=== PATIENT | male | born 1965 | race Caucasian/White ===

== ENCOUNTER 2018-08-02 13:39 | Emergency (ER) | payer OTHER ==
[2018-08-02] MEDS ORDERED: methylPREDNISolone SOD SUCCI 125 MG/2 ML VIAL IV STA (14:39)
[2018-08-02] MEDS ORDERED: IPRATROPIUM-ALBUTEROL 3 ML NEB INHALATION STA (14:39)
--- NOTE | 2018-08-02 14:58 | ED ---
General Adult HPI - General Chief complaint: Upper Respiratory Infection Stated complaint: Upper respiratory problems Time Seen by Provider: 08/02/18 14:31 Source: patient, RN notes reviewed Mode of arrival: ambulatory Limitations: no limitations - History of Present Illness Initial comments: 52-year-old male with a past medical history of COPD, heart failure, hyperlipidemia, hypertension presents to the emergency department for a chief complaint of cough 2 days. Patient states this cough is productive with white sputum. Patient states it is making him feel short of breath. He states he is having some pain in his chest when coughing. Patient states the shortness of breath is consistent with previous COPD exacerbations. Patient states he always has mild leg edema due to CHF and it is currently at its baseline. He states he has been taking his medications including Lasix. Patient has no other complaints at this time including abdominal pain, nausea or vomiting, headache, or visual changes. - Related Data Previous Rx's Medication Instructions Recorded Albuterol Inhaler [Ventolin Hfa 1 - 2 puff INHALATION Q6HR PRN #1 08/02/18 Inhaler] inhaler Azithromycin [Zithromax Z-pack] 250 mg PO DIRECTED #6 tab 08/02/18 predniSONE 50 mg PO DAILY #5 tablet 08/02/18 Allergies Allergy/AdvReac Type Severity Reaction Status Date / Time No Known Allergies Allergy Verified 08/02/18 14:09 Review of Systems ROS Statement: Those systems with pertinent positive or pertinent negative responses have been documented in the HPI. ROS Other: All systems not noted in ROS Statement are negative. Past Medical History Past Medical History: Heart Failure, COPD, Hyperlipidemia, Hypertension History of Any Multi-Drug Resistant Organisms: None Reported Past Surgical History: No Surgical Hx Reported Past Psychological History: ADD/ADHD, Anxiety, Bipolar, Depression, PTSD Smoking Status: Current every day smoker Past Alcohol Use History: None Reported Past Drug Use History: None Reported General Exam Limitations: no limitations General appearance: alert, in no apparent distress Head exam: Present: atraumatic, normocephalic, normal inspection Eye exam: Present: normal appearance, PERRL, EOMI. Absent: scleral icterus, conjunctival injection, periorbital swelling ENT exam: Present: normal exam, mucous membranes moist Neck exam: Present: normal inspection, full ROM. Absent: tenderness, meningismus, lymphadenopathy Respiratory exam: Present: wheezes (wheezing noted throughout lung cavanaugh), chest wall tenderness. Absent: respiratory distress, rales, rhonchi, stridor Cardiovascular Exam: Present: regular rate, normal rhythm, normal heart sounds. Absent: systolic murmur, diastolic murmur, rubs, gallop, clicks GI/Abdominal exam: Present: soft, normal bowel sounds. Absent: distended, tenderness, guarding, rebound, rigid Neurological exam: Present: alert, oriented X3, CN II-XII intact Psychiatric exam: Present: normal affect, normal mood Course Vital Signs 08/02/18 08/02/18 08/02/18 14:04 15:37 15:42 Temperature 97.8 F Pulse Rate 95 86 77 Respiratory 20 20 Rate Blood Pressure 133/78 122/85 O2 Sat by Pulse 94 L 96 Oximetry 08/02/18 08/02/18 08/02/18 15:50 17:00 17:35 Temperature 98.3 F Pulse Rate 85 86 Respiratory 16 Rate Blood Pressure 116/83 O2 Sat by Pulse 95 Oximetry EKG Findings - EKG Comments: EKG Findings:: Normal sinus rhythm, ventricular rate 87, TN interval 158, QTC 471, no evidence of ST elevation or depression Medical Decision Making - Medical Decision Making 52-year-old male with a past medical history of COPD, heart failure, hyperlipidemia, hypertension presents to the emergency department for a chief of cough 2 days. Patient states the cough is productive with white sputum. Except as short of breath. States it is somewhat painful when he coughs, denies pain otherwise. States this feels similar to his COPD exacerbation. Patient is wheezing in all lung cavanaugh on exam. Initially 94% on room air. CBC does show a white count of 12.9. Patient's lactic acid 2.4, patient given fluids. X-ray however is negative for pneumonia. Patient reevaluated at this time, feeling much better. Lungs are significantly clear. Pierre of breath has improved significantly. Discussed possibility of admission at this time which patient declined states he would rather try outpatient treatment, I do think this is reasonable. Dr. Sanchez also saw the patient who agrees. Patient will be given steroid pack as well as a Z-Sy and an inhaler. He will follow up with primary care in 1-2 days. He is aware that he is to return if he has worsening symptoms. Also discussed hyperglycemia with patient. He just ate a doughnut and an orange. This could be the cause. Patient states he is a borderline diabetic, he will follow up for high blood sugar. - Lab Data Result diagrams: 08/02/18 14:50 08/02/18 14:50 Lab Results 08/02/18 08/02/18 08/02/18 Range/Units 14:50 14:50 14:50 WBC 12.9 H (3.8-10.6) k/uL RBC 5.30 (4.30-5.90) m/uL Hgb 16.3 (13.0-17.5) gm/dL Hct 47.9 (39.0-53.0) % MCV 90.4 (80.0-100.0) fL MCH 30.8 (25.0-35.0) pg MCHC 34.1 (31.0-37.0) g/dL RDW 12.8 (11.5-15.5) % Plt Count 236 (150-450) k/uL Neutrophils % 77 % Lymphocytes % 15 % Monocytes % 4 % Eosinophils % 2 % Basophils % 1 % Neutrophils # 9.9 H (1.3-7.7) k/uL Lymphocytes # 1.9 (1.0-4.8) k/uL Monocytes # 0.5 (0-1.0) k/uL Eosinophils # 0.3 (0-0.7) k/uL Basophils # 0.1 (0-0.2) k/uL PT 9.6 (9.0-12.0) sec INR 0.9 (<1.2) APTT 24.8 (22.0-30.0) sec Sodium 137 (137-145) mmol/L Potassium 3.5 (3.5-5.1) mmol/L Chloride 96 L (98-107) mmol/L Carbon Dioxide 32 H (22-30) mmol/L Anion Gap 9 mmol/L BUN 19 (9-20) mg/dL Creatinine 0.54 L (0.66-1.25) mg/dL Est GFR (CKD-EPI)AfAm >90 (>60 ml/min/1.73 sqM) Est GFR (CKD-EPI)NonAf >90 (>60 ml/min/1.73 sqM) Glucose 274 H (74-99) mg/dL Lactic Ac Sepsis Rflx Plasma Lactic Acid Duke (0.7-2.0) mmol/L Calcium 9.1 (8.4-10.2) mg/dL Magnesium 1.7 (1.6-2.3) mg/dL Total Bilirubin 0.6 (0.2-1.3) mg/dL AST 24 (17-59) U/L ALT 54 (21-72) U/L Alkaline Phosphatase 111 (38-126) U/L Troponin I (0.000-0.034) ng/mL NT-Pro-B Natriuret Pep pg/mL Total Protein 6.2 L (6.3-8.2) g/dL Albumin 3.8 (3.5-5.0) g/dL 08/02/18 08/02/18 08/02/18 Range/Units 14:50 14:50 14:50 WBC (3.8-10.6) k/uL RBC (4.30-5.90) m/uL Hgb (13.0-17.5) gm/dL Hct (39.0-53.0) % MCV (80.0-100.0) fL MCH (25.0-35.0) pg MCHC (31.0-37.0) g/dL RDW (11.5-15.5) % Plt Count (150-450) k/uL Neutrophils % % Lymphocytes % % Monocytes % % Eosinophils % % Basophils % % Neutrophils # (1.3-7.7) k/uL Lymphocytes # (1.0-4.8) k/uL Monocytes # (0-1.0) k/uL Eosinophils # (0-0.7) k/uL Basophils # (0-0.2) k/uL PT (9.0-12.0) sec INR (<1.2) APTT (22.0-30.0) sec Sodium (137-145) mmol/L Potassium (3.5-5.1) mmol/L Chloride (98-107) mmol/L Carbon Dioxide (22-30) mmol/L Anion Gap mmol/L BUN (9-20) mg/dL Creatinine (0.66-1.25) mg/dL Est GFR (CKD-EPI)AfAm (>60 ml/min/1.73 sqM) Est GFR (CKD-EPI)NonAf (>60 ml/min/1.73 sqM) Glucose (74-99) mg/dL Lactic Ac Sepsis Rflx Plasma Lactic Acid Duke 2.4 H* (0.7-2.0) mmol/L Calcium (8.4-10.2) mg/dL Magnesium (1.6-2.3) mg/dL Total Bilirubin (0.2-1.3) mg/dL AST (17-59) U/L ALT (21-72) U/L Alkaline Phosphatase (38-126) U/L Troponin I <0.012 (0.000-0.034) ng/mL NT-Pro-B Natriuret Pep 51 pg/mL Total Protein (6.3-8.2) g/dL Albumin (3.5-5.0) g/dL 08/02/18 Range/Units 15:53 WBC (3.8-10.6) k/uL RBC (4.30-5.90) m/uL Hgb (13.0-17.5) gm/dL Hct (39.0-53.0) % MCV (80.0-100.0) fL MCH (25.0-35.0) pg MCHC (31.0-37.0) g/dL RDW (11.5-15.5) % Plt Count (150-450) k/uL Neutrophils % % Lymphocytes % % Monocytes % % Eosinophils % % Basophils % % Neutrophils # (1.3-7.7) k/uL Lymphocytes # (1.0-4.8) k/uL Monocytes # (0-1.0) k/uL Eosinophils # (0-0.7) k/uL Basophils # (0-0.2) k/uL PT (9.0-12.0) sec INR (<1.2) APTT (22.0-30.0) sec Sodium (137-145) mmol/L Potassium (3.5-5.1) mmol/L Chloride (98-107) mmol/L Carbon Dioxide (22-30) mmol/L Anion Gap mmol/L BUN (9-20) mg/dL Creatinine (0.66-1.25) mg/dL Est GFR (CKD-EPI)AfAm (>60 ml/min/1.73 sqM) Est GFR (CKD-EPI)NonAf (>60 ml/min/1.73 sqM) Glucose (74-99) mg/dL Lactic Ac Sepsis Rflx Y Plasma Lactic Acid Duke (0.7-2.0) mmol/L Calcium (8.4-10.2) mg/dL Magnesium (1.6-2.3) mg/dL Total Bilirubin (0.2-1.3) mg/dL AST (17-59) U/L ALT (21-72) U/L Alkaline Phosphatase (38-126) U/L Troponin I (0.000-0.034) ng/mL NT-Pro-B Natriuret Pep pg/mL Total Protein (6.3-8.2) g/dL Albumin (3.5-5.0) g/dL Disposition Clinical Impression: COPD exacerbation Disposition: HOME SELF-CARE Condition: Good Instructions (If sedation given, give patient instructions): COPD (Chronic Obstructive Pulmonary Disease) (ED), Upper Respiratory Infection (ED) Additional Instructions: Please take medications as directed. Use inhaler as needed. Follow-up with primary care in 1-2 days. Return here if you having worsening symptoms or worsening shortness of breath. Prescriptions: Albuterol Inhaler [Ventolin Hfa Inhaler] 1 - 2 puff INHALATION Q6HR PRN #1 inhaler PRN Reason: wheezing Azithromycin [Zithromax Z-pack] 250 mg PO DIRECTED #6 tab predniSONE 50 mg PO DAILY #5 tablet Is patient prescribed a controlled substance at d/c from ED?: No Referrals: Mariela Haro MD [Primary Care Provider] - 1-2 days Time of Disposition: 16:30
[2018-08-02 15:10] LABS: Basophils # (A) 0.1 k/uL (0-0.2); Basophils % (A) 1 %; Eosinophils # (A) 0.3 k/uL (0-0.7); Eosinophils % (A) 2 %; HCT 47.9 % (39.0-53.0); HGB 16.3 gm/dL (13.0-17.5); Lymphocytes # (A) 1.9 k/uL (1.0-4.8); Lymphocytes % (A) 15 %; MCH 30.8 pg (25.0-35.0); MCHC 34.1 g/dL (31.0-37.0); MCV 90.4 fL (80.0-100.0); Monocytes # (A) 0.5 k/uL (0-1.0); Monocytes % (A) 4 %; Neutrophils # (A) 9.9 k/uL (1.3-7.7); Neutrophils % (A) 77 %; Platelet Count 236 k/uL (150-450); RDW 12.8 % (11.5-15.5); WBC 12.9 k/uL (3.8-10.6)
[2018-08-02 15:19] LABS: INR 0.9 (<1.2); Partial Thromboplastin Time 24.8 sec (22.0-30.0); Prothrombin Time 9.6 sec (9.0-12.0)
[2018-08-02 15:34] LABS: ALT 54 U/L (21-72); AST 24 U/L (17-59); Albumin 3.8 g/dL (3.5-5.0); Alkaline Phosphatase 111 U/L (38-126); Anion Gap 9 mmol/L; Blood Urea Nitrogen 19 mg/dL (9-20); Calcium 9.1 mg/dL (8.4-10.2); Carbon Dioxide 32 mmol/L (22-30); Chloride 96 mmol/L (98-107); Glucose 274 mg/dL (74-99); Magnesium 1.7 mg/dL (1.6-2.3); Potassium 3.5 mmol/L (3.5-5.1); Sodium 137 mmol/L (137-145); Total Bilirubin 0.6 mg/dL (0.2-1.3); Total Protein 6.2 g/dL (6.3-8.2)
--- NOTE | 2018-08-02 15:59 | XR ---
EXAMINATION TYPE: XR chest 2V DATE OF EXAM: 08/02/2018 COMPARISON: NONE HISTORY: Shortness of breath and cough TECHNIQUE: Frontal and lateral views of the chest are obtained. FINDINGS: There is chronic parenchymal change without suspicious focal air space opacity, pleural ef fusion, or pneumothorax seen. The cardiac silhouette size is within normal limits with slightly ecta tic thoracic aorta. The osseous structures are intact. IMPRESSION: Chronic parenchymal changes without acute pulmonary process.
[2018-08-02] MEDS ORDERED: SODIUM CHLORIDE 0.9% 500 ML 500 ML IV STA (16:08)
[2018-08-02 17:00] VITALS: BP 116/83; PULSE 86; RESP 16
[2018-08-02 17:38] VITALS: TEMP 98.3
== END 2018-08-02 17:35 | disposition home or self-care (01) ==
LOC: EC 13:39
DX: J44.1 Chronic obstructive pulmonary disease with (acute) exacerbation (principal); R73.09 Other abnormal glucose; I11.0 Hypertensive heart disease with heart failure; I50.9 Heart failure, unspecified; F17.200 Nicotine dependence, unspecified, uncomplicated; Z79.899 Other long term (current) drug therapy
CPT/HCPCS: 36415; 94640; 93005; 83880; 80053; 83605; 83735; 84484; 85025; 85610; 85730; 87040; 71046; 99285; 96374; 96361; J2930

== ENCOUNTER → 2018-08-10 | Outpatient (CLI) | payer OTHER ==
--- NOTE | 2018-08-10 14:15 | US ---
EXAMINATION TYPE: US venous doppler duplex LE DATE OF EXAM: 08/10/2018 1:48 PM COMPARISON: NONE CLINICAL HISTORY: R60.0 localized edema. Bilateral leg edema SIDE PERFORMED: Bilateral TECHNIQUE: The lower extremity deep venous system is examined utilizing real time linear array sonog billy with graded compression, doppler sonography and color-flow sonography. VESSELS IMAGED: External Iliac Vein (EIV) Common Femoral Vein Deep Femoral Vein Greater Saphenous Vein * Femoral Vein Popliteal Vein Small Saphenous Vein * Proximal Calf Veins (* superficial vessels) Grayscale, color doppler, spectral doppler imaging performed of the deep veins of the lower extremiti es. There is normal flow, compressibility, vascular waveforms. Right Leg: Negative for DVT Left Leg: Negative for DVT IMPRESSION: No sonographic evidence of deep venous thrombosis within either lower extremity.
== END ==
LOC: RADUSWWP 13:18
PROVIDERS: ATTEND Family Medicine
DX: R60.0 Localized edema (principal)
CPT/HCPCS: 93970

== ENCOUNTER 2018-09-08 11:19 | Inpatient (IN) | payer OTHER ==
[2018-09-08] MEDS ORDERED: ASPIRIN 325 MG TAB PO ONE (12:10)
[2018-09-08] MEDS ORDERED: CLOPIDOGREL 75 MG TAB PO ONE (12:10)
[2018-09-08] MEDS ORDERED: BIVALIRUDIN 250 MG in SODIUM CHLORIDE 0.9% 50 ML IV ONE (12:20)
[2018-09-08] MEDS ORDERED: BIVALIRUDIN BOLUS 250 MG/50 ML IV ONE (12:20)
[2018-09-08] MEDS ORDERED: IV FLUID CONTINUATION 900 ML IV ONE (12:20)
[2018-09-08] MEDS ORDERED: IOPAMIDOL-370 150ML BTL INJ ONE (12:44)
[2018-09-08] MEDS ORDERED: ZOLPIDEM 5 MG TAB PO PRN (12:49)
[2018-09-08] MEDS ORDERED: NITROGLYCERIN SL TABS 0.4 MG TAB SUBLINGUAL PRN (12:49)
[2018-09-08] MEDS ORDERED: MAG HYDROX/AL HYDROX/SIMETH 30 ML CUP PO PRN (12:49)
[2018-09-08] MEDS ORDERED: RX INFO: IV CONTRAST WAS GIVEN 1 EACH MISC MISCELLANE PRN (12:49)
[2018-09-08] MEDS ORDERED: ATROPINE SULFATE 0.1 MG/ML 10ML SYRINGE IV PRN (12:49)
[2018-09-08] MEDS ORDERED: SODIUM CHLORIDE 0.9% 1,000 ML IV SCH (13:00)
--- NOTE | 2018-09-08 19:28 | PTCA ---
PERCUTANEOUSTRANS CORORONARY ANGIOGRAPHY Mr. Cohn is a 52-year-old male known history of chronic tobacco use, hypertension, diabetes and hyperlipidemia, who presented with symptoms of dizziness, syncope, and dyspnea as well as chest discomfort to [facility], underwent a myocardial perfusion imaging that revealed evidence of inducible ischemia. He underwent cardiac catheterization that revealed significant obstructive disease involving the proximal left circumflex. In view of that, recommendation made regarding coronary angioplasty and stenting. The procedure as well as risks and complication were discussed with the patient who is in full understanding and agreement. PROCEDURE: Patient was brought to the landscape laborer in a fasting semi-sedated state. He has received fentanyl and Benadryl. Using guidewire exchange technique, a 6-Bangladeshi sheath in the right radial artery was exchanged to a 6-Bangladeshi sheath. Following that, a 6-Bangladeshi FL5 guiding catheter in the system. After cannulating the left circumflex ostium a 0.014 balanced medium weight J-wire was advanced across the lesion, positioned distally. Then a 4.0 x 18 mm Xience Alma Rosa stent was advanced, deployed and post at 16 atmospheres. After the last inflation, after appropriate wait, the balloon was withdrawn back and a 4.5 x 12 mm NC Trek balloon was advanced and one inflation at 12 atmospheres was done. Following that, the balloon was withdrawn back in the wire. Images were obtained and repeated. Those images reveal stable successful stenting. Following that, the guiding catheter was removed and a 6-Bangladeshi FR4 guiding catheter was introduced in the system. An image of the right coronary was performed. Following that, catheter and sheath were removed. Hemostasis was obtained with deployment of a TR band. There was no immediate complication. Patient is returned to his room in stable condition. Of note, the patient had chest discomfort with the inflation that resolved at the end of the procedure. He received Angiomax per protocol as well as oral loading dose of clopidogrel. RESULTS: 1. Successful stenting of the proximal left circumflex with reduction of stenosis from 70% to 0%. 2. Mild to moderate disease in the proximal right coronary artery. RECOMMENDATION: Patient will be continued on aspirin, Plavix, beta archie, KEN inhibitor, and statin. The importance of dual antiplatelet treatment were discussed with the patient and his family who are in full understanding and agreement. Duration of procedure 26 minutes. MMODL / IJN: [id number] /
[2018-09-08 19:50] VITALS: RESP 18
[2018-09-08] MEDS: OXcarbazepine 300 MG TAB PO SCH (20:14)
[2018-09-08] MEDS: METOPROLOL TARTRATE 25 MG TAB PO SCH (20:14)
[2018-09-08] MEDS ORDERED: traZODone HCL 100 MG TAB PO SCH (21:00)
[2018-09-08] MEDS ORDERED: ATORVASTATIN 80 MG TAB PO SCH (21:00)
[2018-09-09 07:30] VITALS: TEMP 98.6
[2018-09-09 07:51] LABS: Anion Gap 6 mmol/L; Blood Urea Nitrogen 10 mg/dL (9-20); Calcium 9.2 mg/dL (8.4-10.2); Carbon Dioxide 29 mmol/L (22-30); Chloride 104 mmol/L (98-107); Glucose 159 mg/dL (74-99); Potassium 4.5 mmol/L (3.5-5.1); Sodium 139 mmol/L (137-145)
[2018-09-09] MEDS: METOPROLOL TARTRATE 25 MG TAB PO SCH (08:18)
[2018-09-09] MEDS: OXcarbazepine 300 MG TAB PO SCH (08:18)
[2018-09-09] MEDS ORDERED: PANTOPRAZOLE 40 MG TABLET PO SCH (08:30)
--- NOTE | 2018-09-09 08:53 | PN ---
PROGRESS NOTE Mr. Cohn is a 52-year-old male who presented to [facility] with an episode of syncope, dyspnea and chest discomfort, had an abnormal myocardial perfusion imaging. Subsequently underwent cardiac catheterization revealed significant stenosis in the proximal left circumflex, underwent stenting of that vessel yesterday. He is doing well this morning. He denies any chest pain. No dizziness. No palpitation. He continues to be at this time on aspirin once a day, Lipitor 80 mg daily, Plavix 75 mg daily, lisinopril 5 mg daily, metoprolol tartrate 25 mg twice a day, trazodone 100 mg daily. PHYSICAL EXAMINATION: Blood pressure 130/80 with the heart rate in the 70s. LUNGS: Clear. HEART: Regular rate and rhythm. S1, S2. No S3. No rub. ABDOMEN: Soft, nontender. EXTREMITIES: No edema. Right radial pulse intact. LAB DATA: Lab data revealed a BUN and creatinine of 10 and 0.67, potassium 4.5. IMPRESSION: 1. Status post stenting of the left circumflex. 2. Chronic tobacco use. 3. Hyperlipidemia. 4. Chronic obstructive pulmonary disease. RECOMMENDATION: Patient will be discharged home today and followed as an outpatient. The importance of smoking cessation was discussed with him in detail. MMODL / IJN: [id number] /
[2018-09-09] MEDS ORDERED: AMITRIPTYLINE HCL 25 MG TAB PO SCH (09:00)
[2018-09-09] MEDS ORDERED: LISINOPRIL 5 MG TAB PO SCH (09:00)
[2018-09-09] MEDS ORDERED: ASPIRIN 81 MG PO SCH (09:00)
[2018-09-09 11:20] VITALS: BP 142/78; PULSE 71
[2018-09-09] MEDS ORDERED: CLOPIDOGREL 75 MG TAB PO SCH (12:00)
--- NOTE | 2018-09-09 12:47 | P.HPIM ---
History of Present Illness 52-year-old pleasant gentleman was transferred to [facility] for Cardiac Catheterization and Stenting of Proximal Left Circumflex. Patient Was Admitted Acutely [facility] When He Presented There with Shortness of Breath and Lightheadedness. His Are Shortness of Breath Is Probably Multifactorial Including Restrictive Lung Disease Sleep Apnea Secondary to His Obesity and the from a Mild to COPD Patient Used To Smoke 2-3 Packs Was of Cigarettes per Day Presently Smoking 1 Pack per Day. Patient Has a Part of Workup for Shortness of Breath Underwent the Echocardiogram Which Led to a Stress Test Which Led to Cardiac Catheterization Found to Have Occlusion of Proximal Left Circumflex. Patient Presently Underwent Stenting of This Was so and Clinically Doing Well Is Still Bit Short of Breath Which Is Most Probably Due To Other Factors As Mentioned above. Patient Denied Any Fever Chills Nausea Vomiting Patient Is Melonie lin Discharged Today in Stable Medical Condition to Home. Extensive Counseling regarding Smoking Cessation Weight-Loss Lifestyle Modifications Was Provided. And Counseling regarding Post Stent Placement Care Was Also Provided. Review of Systems REVIEW OF SYSTEMS: CONSTITUTIONAL: No fever, no malaise, no fatigue. HEENT: No recent visual problems or hearing problems. Denied any sore throat. CARDIOVASCULAR: No chest pain, orthopnea, PND, no palpitations, no syncope. PULMONARY: No shortness of breath, no cough, no hemoptysis. GASTROINTESTINAL: No diarrhea, no nausea, no vomiting, no abdominal pain. NEUROLOGICAL: No headaches, no weakness, no numbness. HEMATOLOGICAL: Denies any bleeding or petechiae. GENITOURINARY: Denies any burning micturition, frequency, or urgency. MUSCULOSKELETAL/RHEUMATOLOGICAL: Denies any joint pain, swelling, or any muscle pain. ENDOCRINE: Denies any polyuria or polydipsia. The rest of the 14-point review of systems is negative. Past Medical History Past Medical History: Heart Failure, COPD, Hyperlipidemia, Hypertension History of Any Multi-Drug Resistant Organisms: None Reported Past Surgical History: No Surgical Hx Reported Additional Past Surgical History / Comment(s): right second digit 20years ago Past Anesthesia/Blood Transfusion Reactions: No Reported Reaction Past Psychological History: ADD/ADHD, Anxiety, Bipolar, Depression, PTSD Smoking Status: Current every day smoker Past Alcohol Use History: None Reported Past Drug Use History: None Reported - Past Family History Father Family Medical History: COPD, Myocardial Infarction ([place]) Additional Family Medical History / Comment(s): ETOH,passed from [place] Mother Family Medical History: COPD, Myocardial Infarction ([place]) Sister(s) Family Medical History: COPD, Myocardial Infarction ([place]) Additional Family Medical History / Comment(s): cardiac stents Medications and Allergies Home Medications Medication Instructions Recorded Confirmed Type Albuterol Nebulized [Ventolin 2.5 mg INHALATION RT-TID PRN 09/08/18 09/08/18 History Nebulized] Amitriptyline HCl [Elavil] 25 mg PO HS 09/08/18 09/08/18 History Atorvastatin [Lipitor] 40 mg PO DAILY 09/08/18 09/08/18 History Ergocalciferol (Vitamin D2) 50,000 unit PO MOTH 09/08/18 09/08/18 History [Vitamin D2] Furosemide [Lasix] 40 mg PO DAILY 09/08/18 09/08/18 History Lisinopril [Zestril] 10 mg PO DAILY 09/08/18 09/08/18 History OXcarbazepine [Trileptal] 300 mg PO BID 09/08/18 09/08/18 History Ranitidine HCl 150 mg PO BID 09/08/18 09/08/18 History Sertraline [Zoloft] 100 mg PO DAILY 09/08/18 09/08/18 History hydrOXYzine PAMOATE [Vistaril] 25 mg PO Q8H 09/08/18 09/08/18 History traZODone HCL [Desyrel] 100 mg PO HS 09/08/18 09/08/18 History Aspirin 81 mg PO DAILY chew 09/09/18 Rx Clopidogrel [Plavix] 75 mg PO DAILY #90 tab 09/09/18 Rx Metoprolol Tartrate [Lopressor] 25 mg PO BID #0 09/09/18 09/08/18 Rx Nitroglycerin Sl Tabs [Nitrostat] 0.4 mg SUBLINGUAL Q5M PRN #25 tab 09/09/18 Rx Allergies Allergy/AdvReac Type Severity Reaction Status Date / Time No Known Allergies Allergy Verified 08/02/18 14:09 Physical Exam Vitals: Vital Signs Temp Pulse Resp BP Pulse Ox 09/09/18 11:19 71 18 142/78 96 09/09/18 07:25 98.6 F 78 18 149/66 96 09/09/18 03:29 98.1 F 71 18 130/81 95 09/08/18 23:45 98.5 F 76 18 152/93 96 09/08/18 20:34 18 09/08/18 19:15 98.3 F 67 18 115/65 94 L 09/08/18 17:19 98 F 66 16 122/76 94 L 09/08/18 16:45 66 16 94 L 09/08/18 15:45 22 134/65 09/08/18 15:15 18 122/70 09/08/18 15:00 20 127/76 Intake and Output 09/08/18 09/09/18 09/09/18 22:59 06:59 14:59 Intake Total 220 Balance 220 Intake: Oral 220 Other: # Voids 1 Weight 129.5 kg PHYSICAL EXAMINATION: GENERAL: The patient is alert and oriented x3, not in any acute distress. Well developed, well nourished. HEENT: Pupils are round and equally reacting to light. EOMI. No scleral icterus. No conjunctival pallor. Normocephalic, atraumatic. No pharyngeal erythema. No thyromegaly. CARDIOVASCULAR: S1 and S2 present. No murmurs, rubs, or gallops. PULMONARY: Chest is clear to auscultation, no wheezing or crackles. ABDOMEN: Soft, nontender, nondistended, normoactive bowel sounds. No palpable organomegaly. MUSCULOSKELETAL: No joint swelling or deformity. EXTREMITIES: No cyanosis, clubbing, or pedal edema. NEUROLOGICAL: Gross neurological examination did not reveal any focal deficits. SKIN: No rashes. Results CBC & Chem 7: 09/09/18 06:57 Labs: Abnormal Lab Results - Last 24 Hours (Table) 09/09/18 Range/Units 06:57 Glucose 159 H (74-99) mg/dL Thrombosis Risk Factor Assmnt - Choose All That Apply Any of the Below Risk Factors Present?: Yes Each Factor Represents 1 point: Abnormal pulmonary function (COPD), Age 41-60 years, Obesity (BMI >25) Thrombosis Risk Factor Assessment Total Risk Factor Score: 3 Thrombosis Risk Factor Assessment Level: Moderate Risk Assessment and Plan Plan: -Coronary artery disease status post stenting of left circumflex patient will be continued and antiplatelet therapy beta archie along with lisinopril patient had normal ejection fraction. -Chronic tobacco use with a competent of COPD without any acute exacerbation patient can continue his inhaled steroids inhalational treatments which he already has at home. -Hiatal hernia and gastroesophageal reflux disease and this aids will be discussed in your patient can continue his Zantac -Hyperlipidemia -Obesity with sleep apnea -Shortness of breath which appears to be chronic and multifactorial as mentioned above. Patient will be discharged today
--- NOTE | 2018-09-09 12:48 | P.DS ---
Providers Date of admission: 09/08/18 12:50 Attending physician: Carisa Garcia MD Consults: 09/08/18 12:49 Consult Physician Routine Consulting Provider: [facility] Consult Reason/Comments: Post Interventional patient Do you want consulting provider notified?: Already Contacted Placement Type Exists?: Yes Primary care physician: Stated None Hospital Course: As mentioned in HPI Plan - Discharge Summary Discharge Rx Participant: Yes New Discharge Prescriptions: New Aspirin 81 mg PO DAILY chew Nitroglycerin Sl Tabs [Nitrostat] 0.4 mg SUBLINGUAL Q5M PRN #25 tab PRN Reason: Chest Pain Clopidogrel [Plavix] 75 mg PO DAILY #90 tab Continue Lisinopril [Zestril] 10 mg PO DAILY Atorvastatin [Lipitor] 40 mg PO DAILY Amitriptyline HCl [Elavil] 25 mg PO HS Albuterol Nebulized [Ventolin Nebulized] 2.5 mg INHALATION RT-TID PRN PRN Reason: Shortness Of Breath Sertraline [Zoloft] 100 mg PO DAILY OXcarbazepine [Trileptal] 300 mg PO BID traZODone HCL [Desyrel] 100 mg PO HS Ranitidine HCl 150 mg PO BID Ergocalciferol (Vitamin D2) [Vitamin D2] 50,000 unit PO MOTH hydrOXYzine PAMOATE [Vistaril] 25 mg PO Q8H Changed Metoprolol Tartrate [Lopressor] 25 mg PO BID #0 Discontinued Potassium Chloride [K-Tab ER] 20 meq PO DAILY Furosemide [Lasix] 40 mg PO DAILY Metolazone [Zaroxolyn] 2.5 mg PO DAILY Naproxen [Naprosyn] 375 mg PO Q12H PRN PRN Reason: Pain Discharge Medication List Albuterol Nebulized [Ventolin Nebulized] 2.5 mg INHALATION RT-TID PRN 09/08/18 [History] Amitriptyline HCl [Elavil] 25 mg PO HS 09/08/18 [History] Atorvastatin [Lipitor] 40 mg PO DAILY 09/08/18 [History] Ergocalciferol (Vitamin D2) [Vitamin D2] 50,000 unit PO MOTH 09/08/18 [History] Lisinopril [Zestril] 10 mg PO DAILY 09/08/18 [History] OXcarbazepine [Trileptal] 300 mg PO BID 09/08/18 [History] Ranitidine HCl 150 mg PO BID 09/08/18 [History] Sertraline [Zoloft] 100 mg PO DAILY 09/08/18 [History] hydrOXYzine PAMOATE [Vistaril] 25 mg PO Q8H 09/08/18 [History] traZODone HCL [Desyrel] 100 mg PO HS 09/08/18 [History] Aspirin 81 mg PO DAILY chew 09/09/18 [Rx] Clopidogrel [Plavix] 75 mg PO DAILY #90 tab 09/09/18 [Rx] Metoprolol Tartrate [Lopressor] 25 mg PO BID #0 09/09/18 [Rx] Nitroglycerin Sl Tabs [Nitrostat] 0.4 mg SUBLINGUAL Q5M PRN #25 tab 09/09/18 [Rx] Follow up Appointment(s)/Referral(s): Celeste Tripp MD [STAFF PHYSICIAN] - 1 Week (Office will call with follow up appointment. ) Yessenia Silveira [facility] [REFERRING] - 09/13/18 2:15 pm (Please follow up with primary physician about elevated blood sugar.) Patient Instructions/Handouts: How to Stop Smoking (DC), Heart Healthy Diet (DC), Coronary Intravascular Stent Placement (DC) Discharge Disposition: HOME SELF-CARE
[2018-09-09 14:30] VITALS: BMI 40.9
== END 2018-09-09 15:57 | disposition home or self-care (01) | DRG 247 ==
LOC: 3SCARD 12:50
PROVIDERS: ADMIT Internal Medicine; ATTEND Internal Medicine
PROC: 027034Z Dilation of Coronary Artery, One Artery with Drug-eluting Intraluminal Device, Percutaneous Approach (ICD-10-PCS; principal; 2018-09-08 15:30)
DX: I25.10 Atherosclerotic heart disease of native coronary artery without angina pectoris (principal); Z68.41 Body mass index [BMI] 40.0-44.9, adult; K44.9 Diaphragmatic hernia without obstruction or gangrene; K21.9 Gastro-esophageal reflux disease without esophagitis; E78.5 Hyperlipidemia, unspecified; E66.9 Obesity, unspecified; F17.210 Nicotine dependence, cigarettes, uncomplicated; F31.9 Bipolar disorder, unspecified; F43.10 Post-traumatic stress disorder, unspecified; F90.9 Attention-deficit hyperactivity disorder, unspecified type; G47.30 Sleep apnea, unspecified; I11.0 Hypertensive heart disease with heart failure; I50.9 Heart failure, unspecified; J44.9 Chronic obstructive pulmonary disease, unspecified; Z71.6 Tobacco abuse counseling; Z79.82 Long term (current) use of aspirin; Z79.02 Long term (current) use of antithrombotics/antiplatelets; Z79.899 Other long term (current) drug therapy; Z82.49 Family history of ischemic heart disease and other diseases of the circulatory system; Z82.5 Family history of asthma and other chronic lower respiratory diseases
CPT/HCPCS: 80048; C1874

== ENCOUNTER 2019-01-18 16:37 | Emergency (ER) | payer OTHER ==
[2019-01-18] MEDS ORDERED: DIPH,PERTUS(ACELL)TETVAC-LF 0.5 ML VIAL IM ONE (17:46)
[2019-01-18] MEDS ORDERED: LIDOCAINE 1% INJ 10MG/ML (20 ML MDV) SQ ONE (17:47)
--- NOTE | 2019-01-18 18:23 | XR ---
EXAMINATION TYPE: XR foot complete LT DATE OF EXAM: 01/18/2019 COMPARISON: NONE HISTORY: Pain TECHNIQUE: 3 views FINDINGS: There is soft tissue swelling on the forefoot on the dorsum of the foot. Metatarsals appear intact. I see no fracture nor dislocation. There are no erosions. Joint spaces are fairly normal. IMPRESSION: Soft tissue swelling. No fracture. No sign of osteomyelitis.
[2019-01-18 18:31] LABS: Anisocytosis Slight; Basophils # (A) 0.1 k/uL (0-0.2); Basophils % (A) 0 %; Eosinophils # (A) 0.4 k/uL (0-0.7); Eosinophils % (A) 3 %; HCT 35.6 % (39.0-53.0); HGB 10.3 gm/dL (13.0-17.5); Hypochromasia Marked; Lymphocytes # (A) 1.9 k/uL (1.0-4.8); Lymphocytes % (A) 16 %; MCH 19.3 pg (25.0-35.0); MCHC 28.8 g/dL (31.0-37.0); MCV 66.9 fL (80.0-100.0); Mean Platelet Volume 6.8; Microcytosis Marked; Monocytes # (A) 0.5 k/uL (0-1.0); Monocytes % (A) 4 %; Neutrophils # (A) 8.9 k/uL (1.3-7.7); Neutrophils % (A) 75 %; Platelet Count 315 k/uL (150-450); Poikilocytosis Slight; RBC 5.32 m/uL (4.30-5.90); RDW 19.8 % (11.5-15.5); WBC 11.8 k/uL (3.8-10.6)
[2019-01-18 18:44] LABS: ALT 26 U/L (21-72); AST 22 U/L (17-59); African American GFR (CKD) >90 (>60 ml/min/1.73 sqM); Albumin 4.2 g/dL (3.5-5.0); Alkaline Phosphatase 82 U/L (38-126); Anion Gap 7 mmol/L; Blood Urea Nitrogen 12 mg/dL (9-20); Calcium 9.2 mg/dL (8.4-10.2); Carbon Dioxide 30 mmol/L (22-30); Chloride 103 mmol/L (98-107); Glucose 150 mg/dL (74-99); Potassium 3.8 mmol/L (3.5-5.1); Sodium 140 mmol/L (137-145); Total Bilirubin 0.8 mg/dL (0.2-1.3); Total Protein 6.6 g/dL (6.3-8.2)
[2019-01-18 20:58] VITALS: BP 130/76; PULSE 66; RESP 18; TEMP 98
[2019-01-18] MEDS ORDERED: CEPHALEXIN 500 MG CAP PO STA (20:58)
--- NOTE | 2019-01-18 20:59 | ED ---
Skin/Abscess/FB HPI - General Chief complaint: Skin/Abscess/Foreign Body Stated complaint: LEFT FOOT INFECTION Time Seen by Provider: 01/18/19 17:15 Source: patient Mode of arrival: ambulatory Limitations: no limitations - History of Present Illness Initial comments: The patient is a 53-year-old male who presents to the emergency room with complaint of swelling to his left dorsal foot. He reports a fall the of this month. He did have worsening pain and swelling in his left foot over the following 2 days and therefore went into [facility] on the . They did complete an x-ray of his foot and they thought that he had a fracture. They did place him in an ankle brace and gave him crutches. There was no shoe or walking boot given. States that his abrasion healed however he began having increasing swelling and ecchymosis. He is not on any blood thinners. Reports that he stopped wearing his brace immediately after his appointment. States the pain has been improving. He is able to ambulate without difficulty. He was concerned about the swelling and the fact that he is a diabetic and therefore came to the emergency room for evaluation. He denies any purulent drainage. No calf pain or swelling. No history of DVTs or PEs. Denies any numbness or tingling in his foot. There are no other alleviating, precipitating or modifying factors - Related Data Home Medications Medication Instructions Recorded Confirmed Amitriptyline HCl [Elavil] 25 mg PO HS 09/08/18 01/18/19 Atorvastatin [Lipitor] 40 mg PO DAILY 09/08/18 01/18/19 Ergocalciferol (Vitamin D2) 50,000 unit PO MOTH 09/08/18 01/18/19 [Vitamin D2] Lisinopril [Zestril] 10 mg PO DAILY 09/08/18 01/18/19 OXcarbazepine [Trileptal] 300 mg PO BID 09/08/18 01/18/19 Ranitidine HCl 150 mg PO BID 09/08/18 01/18/19 Sertraline [Zoloft] 100 mg PO DAILY 09/08/18 01/18/19 hydrOXYzine PAMOATE [Vistaril] 25 mg PO Q8H PRN 09/08/18 01/18/19 Furosemide [Lasix] 40 mg PO DAILY 01/18/19 01/18/19 Insulin Glargine,Hum.rec.anlog 10 unit SQ DAILY 01/18/19 01/18/19 [Basaglalvino Gross U-100] Loratadine [Claritin] 10 mg PO DAILY 01/18/19 01/18/19 Metoprolol Tartrate [Lopressor] 50 mg PO BID 01/18/19 01/18/19 Naproxen 375 mg PO Q12H 01/18/19 01/18/19 Potassium Chloride [Klor-Con 20] 20 meq PO DAILY 01/18/19 01/18/19 metFORMIN HCL [Glucophage] 500 mg PO BID 01/18/19 01/18/19 traZODone HCL 150 mg PO HS 01/18/19 01/18/19 Previous Rx's Medication Instructions Recorded Clopidogrel [Plavix] 75 mg PO DAILY #90 tab 09/09/18 Cephalexin [Keflex] 500 mg PO Q6HR 7 Days #28 cap 01/18/19 Allergies Allergy/AdvReac Type Severity Reaction Status Date / Time No Known Allergies Allergy Verified 01/18/19 17:17 Review of Systems ROS Statement: Those systems with pertinent positive or pertinent negative responses have been documented in the HPI. ROS Other: All systems not noted in ROS Statement are negative. Past Medical History Past Medical History: Coronary Artery Disease (CAD), Heart Failure, COPD, Diabetes Mellitus, Hyperlipidemia, Hypertension History of Any Multi-Drug Resistant Organisms: None Reported Past Surgical History: Heart Catheterization With Stent Additional Past Surgical History / Comment(s): right second digit 20years ago Past Anesthesia/Blood Transfusion Reactions: No Reported Reaction Past Psychological History: ADD/ADHD, Anxiety, Bipolar, Depression, PTSD Smoking Status: Current every day smoker Past Alcohol Use History: None Reported Past Drug Use History: None Reported - Past Family History Father Family Medical History: COPD, Myocardial Infarction ([place]) Additional Family Medical History / Comment(s): ETOH,passed from [place] Mother Family Medical History: COPD, Myocardial Infarction ([place]) Sister(s) Family Medical History: COPD, Myocardial Infarction ([place]) Additional Family Medical History / Comment(s): cardiac stents General Exam Limitations: no limitations General appearance: alert, in no apparent distress Extremities exam: Present: full ROM, tenderness (The patient has tenderness to his mid foot on the left, on the dorsal aspect. There is a 4 x 4 cm area of soft tissue swelling with a central ulcer which measures 1 x 1 cm. There is no purulent drainage from the site. No signs of cellulitis. Compartments are soft. The patient has 5 out of 5 muscle strength in his bilateral lower extremities to include his hip flexors, knee extensors, ankle and great toe dorsiflexors and foot plantar flexors. He has 2+ dorsalis pedis and posterior tibial pulses. Intact sensation over the medial, lateral and dorsal aspects of the foot. No calf pain or swelling), normal capillary refill. Absent: pedal edema, joint swelling, calf tenderness Course Vital Signs 01/18/19 01/18/19 01/18/19 17:14 18:41 20:57 Temperature 98.5 F 98 F Pulse Rate 92 73 66 Respiratory 20 14 18 Rate Blood Pressure 137/75 133/76 130/76 O2 Sat by Pulse 95 96 98 Oximetry Procedures - Incision & Drainage Consent Obtained: verbal consent Indication: suspected abscess Site: foot Anesthetic Used: lidocaine 1% Amount (mLs): 8 I&D Cleaning Method: Chloroprep Sterile Field Used?: Yes Scalpel Used: #11 Needle Aspiration Performed?: No Irrigation Performed?: No I&D Drainage Obtained: Blood (I do express approximately 4 mL of thick, dark clotted blood. No pustular drainage) Culture Obtained?: No Patient Tolerated Procedure: well, no complications Medical Decision Making - Medical Decision Making Upon arrival the patient is placed into room 18. A thorough history and phy sical exam was performed. A bedside ultrasound is performed with the vascular probe which demonstrates a large fluid collection. I did recommend an x-ray of the patient's left foot as well as laboratory studies. Upon return of the results, the patient's blood count is notable for a mild leukocytosis. I did discuss the results with the patient. Radiology did read the patient's x-ray and it demonstrates no fracture. The images are reviewed by myself. It does appear that there is a nutrient vessel in the third metatarsal however no disruption of the cortices. I do not identify a fracture. The patient's tetanus is updated. I did discuss performing an I&D of the patient's wound as I am concerned for abscess for which he was in agreement. Verbal consent was obtained. The wound was anesthetized using 1% lidocaine without epinephrine. Approximately 8 mL was infiltrated. Adequate analgesia was obtained. I did use an 11 blade to knick the most fluctuant area over the scab. I did get return of approximately 4 mL of thick clotted blood. There is no purulent drainage. As the wound was now open I did recommend treatments with antibiotics. The patient was given a dose of Keflex in the ER. He will be discharged home and needs to follow-up with his PCP on Wednesday for wound evaluation. If he has any new or worsening symptoms, he should return to the emergency department. The patient was in agreement with the treatment plan and is discharged home in stable condition - Differential Diagnosis left foot swelling, evaluation for abscess, subcutanous hematoma - Lab Data Result diagrams: 01/18/19 18:10 01/18/19 18:10 Lab Results 01/18/19 01/18/19 Range/Units 18:10 18:10 WBC 11.8 H (3.8-10.6) k/uL RBC 5.32 (4.30-5.90) m/uL Hgb 10.3 L (13.0-17.5) gm/dL Hct 35.6 L (39.0-53.0) % MCV 66.9 L (80.0-100.0) fL MCH 19.3 L (25.0-35.0) pg MCHC 28.8 L (31.0-37.0) g/dL RDW 19.8 H (11.5-15.5) % Plt Count 315 (150-450) k/uL Neutrophils % 75 % Lymphocytes % 16 % Monocytes % 4 % Eosinophils % 3 % Basophils % 0 % Neutrophils # 8.9 H (1.3-7.7) k/uL Lymphocytes # 1.9 (1.0-4.8) k/uL Monocytes # 0.5 (0-1.0) k/uL Eosinophils # 0.4 (0-0.7) k/uL Basophils # 0.1 (0-0.2) k/uL Hypochromasia Marked Poikilocytosis Slight Anisocytosis Slight Microcytosis Marked Sodium 140 (137-145) mmol/L Potassium 3.8 (3.5-5.1) mmol/L Chloride 103 (98-107) mmol/L Carbon Dioxide 30 (22-30) mmol/L Anion Gap 7 mmol/L BUN 12 (9-20) mg/dL Creatinine 0.73 (0.66-1.25) mg/dL Est GFR (CKD-EPI)AfAm >90 (>60 ml/min/1.73 sqM) Est GFR (CKD-EPI)NonAf >90 (>60 ml/min/1.73 sqM) Glucose 150 H (74-99) mg/dL Calcium 9.2 (8.4-10.2) mg/dL Total Bilirubin 0.8 (0.2-1.3) mg/dL AST 22 (17-59) U/L ALT 26 (21-72) U/L Alkaline Phosphatase 82 (38-126) U/L Total Protein 6.6 (6.3-8.2) g/dL Albumin 4.2 (3.5-5.0) g/dL - Radiology Data Radiology results: report reviewed, image reviewed Disposition Clinical Impression: Blunt trauma, Traumatic hematoma Disposition: HOME SELF-CARE Condition: Stable Instructions (If sedation given, give patient instructions): Abscess Incision and Drainage (ED) Additional Instructions: Please follow-up with your primary care physician on Wednesday. Return to the emergency room for any new or worsening symptoms Prescriptions: Cephalexin [Keflex] 500 mg PO Q6HR 7 Days #28 cap Is patient prescribed a controlled substance at d/c from ED?: No Referrals: Mariela Haro MD [Primary Care Provider] - 1-2 days Time of Disposition: 21:02
== END 2019-01-18 21:08 | disposition home or self-care (01) ==
LOC: EC 16:37
DX: S90.32XA Contusion of left foot, initial encounter (principal); L02.612 Cutaneous abscess of left foot; I25.10 Atherosclerotic heart disease of native coronary artery without angina pectoris; I11.0 Hypertensive heart disease with heart failure; I50.9 Heart failure, unspecified; E11.9 Type 2 diabetes mellitus without complications; E78.5 Hyperlipidemia, unspecified; F31.9 Bipolar disorder, unspecified; F41.9 Anxiety disorder, unspecified; F43.10 Post-traumatic stress disorder, unspecified; F17.200 Nicotine dependence, unspecified, uncomplicated; Z79.1 Long term (current) use of non-steroidal anti-inflammatories (NSAID); Z79.4 Long term (current) use of insulin; Z79.899 Other long term (current) drug therapy; Z95.5 Presence of coronary angioplasty implant and graft; Z23 Encounter for immunization; W19.XXXA Unspecified fall, initial encounter; Y92.89 Other specified places as the place of occurrence of the external cause
CPT/HCPCS: 99284; 10060; 90471; 36415; 80053; 85025; 73630; 90715; J2001

== ENCOUNTER 2020-03-15 14:42 | Emergency (ER) | payer OTHER ==
[2020-03-15 14:51] VITALS: RESP 18; TEMP 98.5
--- NOTE | 2020-03-15 15:37 | ED ---
Recheck HPI - General Source: patient, EMS Mode of arrival: EMS <Yanci Aldridge - Last Filed: 03/15/20 19:17> <Arcelia Johnson - Last Filed: 03/17/20 15:35> - General Chief Complaint: Recheck/Abnormal Lab/Rx Stated Complaint: hypertension, headaches Time Seen by Provider: 03/15/20 15:20 - History of Present Illness Initial Comments: 54-year-old male patient with past medical history significant for hypertension, COPD, diabetes, [place] with stent placement, and CHF presents to the emergency department today for evaluation of elevated blood pressure. Patient is currently an inmate at the [facility]. States that over the last couple of days he has had elevated blood pressures and a mild headache over the top of his head. States that today he did receive additional blood pressure medication 0.1mg of Catapres and BP remained high so they sent him here for further evaluation. Patient states that over the last week he has also had increased shortness of breath especially with lying down. States that he his having increased swelling to the lower legs. He is given all of his medications by the [facility] nurse. He denies any chest pain, dizziness, or weakness. Does admit that his diet suffers being in [facility] because the heart healthy diet is not enough food. Patient denies any recent rash, fever, chills, cough, abdominal pain, nausea, vomiting, diarrhea, constipation, back pain, numbness, tingling, hematuria, dysuria, urinary urgency, urinary frequency, visual changes, or any other complaints. (Yanci Aldridge) - Related Data Home Medications Medication Instructions Recorded Confirmed Amitriptyline HCl [Elavil] 25 mg PO HS 09/08/18 01/18/19 Atorvastatin [Lipitor] 40 mg PO DAILY 09/08/18 01/18/19 Ergocalciferol (Vitamin D2) 50,000 unit PO MOTH 09/08/18 01/18/19 [Vitamin D2] OXcarbazepine [Trileptal] 300 mg PO BID 09/08/18 01/18/19 Ranitidine HCl 150 mg PO BID 09/08/18 01/18/19 Sertraline [Zoloft] 100 mg PO DAILY 09/08/18 01/18/19 hydrOXYzine pamoate [Vistaril] 25 mg PO Q8H PRN 09/08/18 01/18/19 lisinopriL [Zestril] 10 mg PO DAILY 09/08/18 01/18/19 Furosemide [Lasix] 40 mg PO DAILY 01/18/19 01/18/19 Insulin Glargine,Hum.rec.anlog 10 unit SQ DAILY 01/18/19 01/18/19 [Basaglar Kwikpen U-100] Loratadine [Claritin] 10 mg PO DAILY 01/18/19 01/18/19 Metoprolol Tartrate [Lopressor] 50 mg PO BID 01/18/19 01/18/19 Naproxen 375 mg PO Q12H 01/18/19 01/18/19 Potassium Chloride [Klor-Con 20] 20 meq PO DAILY 01/18/19 01/18/19 metFORMIN HCL [Glucophage] 500 mg PO BID 01/18/19 01/18/19 traZODone HCL 150 mg PO HS 01/18/19 01/18/19 Previous Rx's Medication Instructions Recorded Clopidogrel [Plavix] 75 mg PO DAILY #90 tab 09/09/18 Cephalexin [Keflex] 500 mg PO Q6HR 7 Days #28 cap 01/18/19 Allergies Allergy/AdvReac Type Severity Reaction Status Date / Time No Known Allergies Allergy Verified 01/18/19 17:17 Review of Systems ROS Other: All systems not noted in ROS Statement are negative. <Yanci Aldridge - Last Filed: 03/15/20 19:17> ROS Other: All systems not noted in ROS Statement are negative. <Arcelia Johnson - Last Filed: 03/17/20 15:35> ROS Statement: Those systems with pertinent positive or pertinent negative responses have been documented in the HPI. Past Medical History Past Medical History: Coronary Artery Disease (CAD), Heart Failure, COPD, Diabetes Mellitus, Hyperlipidemia, Hypertension History of Any Multi-Drug Resistant Organisms: None Reported Past Surgical History: Heart Catheterization With Stent Additional Past Surgical History / Comment(s): right second digit 20years ago Past Anesthesia/Blood Transfusion Reactions: No Reported Reaction Past Psychological History: ADD/ADHD, Anxiety, Bipolar, Depression, PTSD Smoking Status: Former smoker Past Alcohol Use History: None Reported Past Drug Use History: None Reported - Past Family History Father Family Medical History: COPD, Myocardial Infarction ([place]) Additional Family Medical History / Comment(s): ETOH,passed from [place] Mother Family Medical History: COPD, Myocardial Infarction ([place]) Sister(s) Family Medical History: COPD, Myocardial Infarction ([place]) Additional Family Medical History / Comment(s): cardiac stents <Yanci Aldridge M - Last Filed: 03/15/20 19:17> General Exam General appearance: alert, in no apparent distress, other (This is a well-developed, well-nourished adult male patient in no acute distress. Vital signs upon presentation are temperature 98.5F, pulse 78, respirations 18, blood pressure 163/105, pulse ox 96% on room air.) Eye exam: Present: normal appearance, PERRL, EOMI. Absent: scleral icterus, conjunctival injection, periorbital swelling ENT exam: Present: normal exam, normal oropharynx, mucous membranes moist Respiratory exam: Present: normal lung sounds bilaterally. Absent: respiratory distress, wheezes, rales, rhonchi, stridor Cardiovascular Exam: Present: regular rate, normal rhythm, normal heart sounds. Absent: systolic murmur, diastolic murmur, rubs, gallop, clicks GI/Abdominal exam: Present: soft, normal bowel sounds. Absent: distended, tenderness, guarding, rebound, rigid Extremities exam: Present: full ROM, normal capillary refill, other (There is 2+ pitting edema noted to the bilateral ankles and feet. There is also scabbed lesions over the left foot especially between the toes and over the bottom of the foot.). Absent: normal inspection, tenderness, pedal edema, joint swelling, calf tenderness Neurological exam: Present: alert, oriented X3, CN II-XII intact Psychiatric exam: Present: normal affect, normal mood Skin exam: Present: warm, dry, intact, normal color. Absent: rash <Yanci Aldridge M - Last Filed: 03/15/20 19:17> Course Vital Signs 03/15/20 03/15/20 03/15/20 14:44 15:50 16:00 Temperature 98.5 F Pulse Rate 78 74 74 Respiratory 18 18 18 Rate Blood Pressure 163/105 140/90 140/90 O2 Sat by Pulse 96 95 95 Oximetry 03/15/20 17:29 Temperature 98.5 F Pulse Rate 72 Respiratory 18 Rate Blood Pressure 150/86 O2 Sat by Pulse 95 Oximetry Medical Decision Making - Lab Data Result diagrams: 03/15/20 15:38 03/15/20 15:38 - EKG Data -: EKG Interpreted by Me - Radiology Data Radiology results: report reviewed, image reviewed <Yanci Aldridge - Last Filed: 03/15/20 19:17> - Lab Data Result diagrams: 03/15/20 15:38 03/15/20 15:38 <Arcelia Johnson - Last Filed: 03/17/20 15:35> - Medical Decision Making 54-year-old male patient presents to the emergency department today for evaluation of high blood pressure, mild headache, shortness of breath. Physical examination did reveal clear equal lung sounds. Did have 2+ pitting edema to the bilateral lower extremities. He denied any chest pain. EKG was unremarkable. He did have chest x-ray which showed no acute abnormalities the x-ray report did read to exclude for interstitial pneumonitis, patient does not have symptoms of this at this time. Labs reviewed and revealed normal BNP. Troponin was negative. Blood pressures in the department have been satisfactory. Oxygen saturations are within normal limits. I did discuss findings results with the patient. He will be given additional dose of Lasix today. He will be discharged back to [facility] with instructions to follow up with his primary care physician for recheck in 1-2 days. Return parameters were discussed in detail. He verbalizes understanding and agrees this plan. (Yanci Aldridge) I was available for consultation in the emergency department. The history and physical exam were done by the midlevel provider. I was consulted for this patients care. I reviewed the case with the midlevel provider and based on their presentation of the patient, I agree with the assessment, medical decision making and plan of care as documented. Chart was dictated using [employer] dictation software. Attempts were made to correct any dictation errors however some typographical errors may persist. (Arcelia Johnson) - Lab Data Lab Results 03/15/20 03/15/20 03/15/20 Range/Units 15:38 15:38 15:38 WBC 10.3 (3.8-10.6) k/uL RBC 4.89 (4.30-5.90) m/uL Hgb 15.1 (13.0-17.5) gm/dL Hct 44.9 (39.0-53.0) % MCV 91.8 (80.0-100.0) fL MCH 30.9 (25.0-35.0) pg MCHC 33.7 (31.0-37.0) g/dL RDW 13.3 (11.5-15.5) % Plt Count 215 (150-450) k/uL Neutrophils % 74 % Lymphocytes % 16 % Monocytes % 5 % Eosinophils % 2 % Basophils % 1 % Neutrophils # 7.6 (1.3-7.7) k/uL Lymphocytes # 1.7 (1.0-4.8) k/uL Monocytes # 0.5 (0-1.0) k/uL Eosinophils # 0.3 (0-0.7) k/uL Basophils # 0.1 (0-0.2) k/uL PT 10.0 (9.0-12.0) sec INR 1.0 (<1.2) APTT 25.4 (22.0-30.0) sec Sodium 136 L (137-145) mmol/L Potassium 4.0 (3.5-5.1) mmol/L Chloride 98 (98-107) mmol/L Carbon Dioxide 30 (22-30) mmol/L Anion Gap 8 mmol/L BUN 9 (9-20) mg/dL Creatinine 0.45 L (0.66-1.25) mg/dL Est GFR (CKD-EPI)AfAm >90 (>60 ml/min/1.73 sqM) Est GFR (CKD-EPI)NonAf >90 (>60 ml/min/1.73 sqM) Glucose 149 H (74-99) mg/dL Calcium 9.4 (8.4-10.2) mg/dL Total Bilirubin 1.0 (0.2-1.3) mg/dL AST 28 (17-59) U/L ALT 30 (4-49) U/L Alkaline Phosphatase 77 (38-126) U/L Troponin I (0.000-0.034) ng/mL NT-Pro-B Natriuret Pep pg/mL Total Protein 7.0 (6.3-8.2) g/dL Albumin 4.6 (3.5-5.0) g/dL 03/15/20 03/15/20 Range/Units 15:38 15:38 WBC (3.8-10.6) k/uL RBC (4.30-5.90) m/uL Hgb (13.0-17.5) gm/dL Hct (39.0-53.0) % MCV (80.0-100.0) fL MCH (25.0-35.0) pg MCHC (31.0-37.0) g/dL RDW (11.5-15.5) % Plt Count (150-450) k/uL Neutrophils % % Lymphocytes % % Monocytes % % Eosinophils % % Basophils % % Neutrophils # (1.3-7.7) k/uL Lymphocytes # (1.0-4.8) k/uL Monocytes # (0-1.0) k/uL Eosinophils # (0-0.7) k/uL Basophils # (0-0.2) k/uL PT (9.0-12.0) sec INR (<1.2) APTT (22.0-30.0) sec Sodium (137-145) mmol/L Potassium (3.5-5.1) mmol/L Chloride (98-107) mmol/L Carbon Dioxide (22-30) mmol/L Anion Gap mmol/L BUN (9-20) mg/dL Creatinine (0.66-1.25) mg/dL Est GFR (CKD-EPI)AfAm (>60 ml/min/1.73 sqM) Est GFR (CKD-EPI)NonAf (>60 ml/min/1.73 sqM) Glucose (74-99) mg/dL Calcium (8.4-10.2) mg/dL Total Bilirubin (0.2-1.3) mg/dL AST (17-59) U/L ALT (4-49) U/L Alkaline Phosphatase (38-126) U/L Troponin I <0.012 (0.000-0.034) ng/mL NT-Pro-B Natriuret Pep 57 pg/mL Total Protein (6.3-8.2) g/dL Albumin (3.5-5.0) g/dL - EKG Data EKG Comments: EKG obtained at 1551 shows normal sinus rhythm with a prolonged QT interval. Ventricular rate is 73, IN interval 180, QRS duration 110, QTC 426, QTc 469. No evidence of ST elevation or depression. (Yanci Aldridge) - Radiology Data Two-view x-ray of the chest is obtained. Report was reviewed in its entirety. Impression by Dr. Correia shows no acute infiltrate. Coarsened interstitial could be seen with bronchitis or chronic interstitial lung disease. Correlate clinically to exclude interstitial pneumonitis. (Yanci Aldridge) Disposition Is patient prescribed a controlled substance at d/c from ED?: No Time of Disposition: 16:56 <Yanci Aldridge - Last Filed: 03/15/20 19:17> <Arcelia Johnson - Last Filed: 03/17/20 15:35> Clinical Impression: Hypertension, Edema Disposition: HOME SELF-CARE Condition: Good Instructions (If sedation given, give patient instructions): Leg Edema (ED), Hypertension (ED) Additional Instructions: Follow up with primary care physician for recheck in 1-2 days. Return to the emergency department for any new, worsening, or concerning symptoms. Referrals: Mariela Haro MD [Primary Care Provider] - 1-2 days
[2020-03-15 15:52] LABS: Basophils # (A) 0.1 k/uL (0-0.2); Basophils % (A) 1 %; Eosinophils # (A) 0.3 k/uL (0-0.7); Eosinophils % (A) 2 %; HCT 44.9 % (39.0-53.0); HGB 15.1 gm/dL (13.0-17.5); Lymphocytes # (A) 1.7 k/uL (1.0-4.8); Lymphocytes % (A) 16 %; MCH 30.9 pg (25.0-35.0); MCHC 33.7 g/dL (31.0-37.0); MCV 91.8 fL (80.0-100.0); Mean Platelet Volume 6.8; Monocytes # (A) 0.5 k/uL (0-1.0); Monocytes % (A) 5 %; Neutrophils # (A) 7.6 k/uL (1.3-7.7); Neutrophils % (A) 74 %; Platelet Count 215 k/uL (150-450); RBC 4.89 m/uL (4.30-5.90); RDW 13.3 % (11.5-15.5); WBC 10.3 k/uL (3.8-10.6)
[2020-03-15 16:07] LABS: Partial Thromboplastin Time 25.4 sec (22.0-30.0)
[2020-03-15 16:08] LABS: ALT 30 U/L (4-49); AST 28 U/L (17-59); African American GFR (CKD) >90 (>60 ml/min/1.73 sqM); Albumin 4.6 g/dL (3.5-5.0); Alkaline Phosphatase 77 U/L (38-126); Anion Gap 8 mmol/L; Blood Urea Nitrogen 9 mg/dL (9-20); Calcium 9.4 mg/dL (8.4-10.2); Carbon Dioxide 30 mmol/L (22-30); Chloride 98 mmol/L (98-107); Glucose 149 mg/dL (74-99); Non-African American GFR(CKD) >90 (>60 ml/min/1.73 sqM); Sodium 136 mmol/L (137-145)
--- NOTE | 2020-03-15 16:33 | XR ---
EXAMINATION TYPE: XR chest 2V DATE OF EXAM: 03/15/2020 COMPARISON: 08/02/2018 TECHNIQUE: PA and lateral views submitted. HISTORY: Shortness of breath FINDINGS: The lungs are clear and there is no pneumothorax, pleural effusion, or focal pneumonia. Coarsened i nterstitium. No pleural effusion or pneumothorax. No focal pneumonia. Heart is prominent in size and there is mild hyperinflation correlate for COPD. IMPRESSION: 1. No acute infiltrate. Coarsened interstitium could be seen with bronchitis or chronic interstitial lung disease. Correlate clinically to exclude interstitial pneumonitis.
[2020-03-15] MEDS ORDERED: FUROSEMIDE 40 MG TAB PO STA (16:56)
[2020-03-15 17:30] VITALS: BP 150/86; PULSE 72
== END 2020-03-15 17:33 | disposition home or self-care (01) ==
LOC: EC 14:42
DX: I11.0 Hypertensive heart disease with heart failure (principal); F90.9 Attention-deficit hyperactivity disorder, unspecified type; F41.9 Anxiety disorder, unspecified; F31.9 Bipolar disorder, unspecified; E78.5 Hyperlipidemia, unspecified; E11.9 Type 2 diabetes mellitus without complications; I50.9 Heart failure, unspecified; Z79.4 Long term (current) use of insulin; Z79.899 Other long term (current) drug therapy; Z95.5 Presence of coronary angioplasty implant and graft; Z87.891 Personal history of nicotine dependence
CPT/HCPCS: 36415; 71046; 80053; 83880; 84484; 85025; 85610; 85730; 93005; 99284

== ENCOUNTER 2022-02-09 15:57 | Emergency (ER) | payer OTHER ==
[2022-02-09 16:10] VITALS: BP 180/91; PULSE 103; RESP 18; TEMP 98
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
== END 2022-02-09 17:15 | disposition home or self-care (01) ==
LOC: EC 15:57
DX: Z46.89 Encounter for fitting and adjustment of other specified devices (principal); I25.10 Atherosclerotic heart disease of native coronary artery without angina pectoris; I11.0 Hypertensive heart disease with heart failure; I50.9 Heart failure, unspecified; E11.9 Type 2 diabetes mellitus without complications; E78.5 Hyperlipidemia, unspecified; F31.9 Bipolar disorder, unspecified; F41.9 Anxiety disorder, unspecified; Z87.891 Personal history of nicotine dependence; Z79.84 Long term (current) use of oral hypoglycemic drugs; Z79.899 Other long term (current) drug therapy
CPT/HCPCS: 29125; 99283

== ENCOUNTER → 2022-02-18 | Outpatient (CLI) | payer OTHER ==
--- NOTE | 2022-02-18 14:59 | US ---
EXAMINATION TYPE: US venous doppler duplex UE LT DATE OF EXAM: 02/18/2022 COMPARISON: NONE CLINICAL HISTORY: M [age] LEFT UPPER EXTREM SPECIFIED SOFT TISSUE DI. Edema left arm. History of left wrist injury. Bruising left arm SIDE PERFORMED: left Left Arm: no evidence of DVT as visualized. IMPRESSION: No evidence of DVT
== END | disposition home or self-care (01) ==
LOC: RADUSWWP 13:33
PROVIDERS: ATTEND Family Medicine
DX: M79.89 Other specified soft tissue disorders (principal)